=== PATIENT | male | born 1960 ===

== ENCOUNTER 2019-03-21 05:57 | Emergency (ER) | payer OTHER ==
[~2019-03-21] VITALS: Ht 182.9 cm; Wt 97.5 kg
[~2019-03-21 05:57] MED LIST: CLINDAMYCIN HC300 MG; CLOPIDOGREL BIS75 MG; EFFIENT10 MG; GLIPIZIDE10 MG/BOTT; GLUMETZA1000 MG; LOSARTAN POTASS50 MG; PENTOXIFYLLINE400 MG
== END 2019-03-21 10:01 | disposition home or self-care (01) ==
LOC: ER 05:57
DX: K29.70 Gastritis, unspecified, without bleeding (principal); E11.649 Type 2 diabetes mellitus with hypoglycemia without coma; I10 Essential (primary) hypertension